=== PATIENT | male | born 1995 | race Caucasian/White ===

== ENCOUNTER 2018-01-18 00:45 | Emergency (ER) | payer SELFPAY ==
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
--- NOTE | 2018-01-18 01:35 | XR ---
EXAMINATION TYPE: XR tibia fibula LT DATE OF EXAM: 01/18/2018 COMPARISON: NONE HISTORY: Puncture of the tibia and fibula. TECHNIQUE: 4 views FINDINGS: I see no fracture nor dislocation. Joint spaces are normal. Soft tissues appear normal. The re is no sign of a foreign body. IMPRESSION: Normal left tibia and fibula exam.
[2018-01-18 02:40] VITALS: BP 107/63; PULSE 81; RESP 19; TEMP 97.5
== END 2018-01-18 02:51 | disposition home or self-care (01) ==
LOC: EC 00:45
DX: S81.812A Laceration without foreign body, left lower leg, initial encounter (principal); F17.200 Nicotine dependence, unspecified, uncomplicated; W22.8XXA Striking against or struck by other objects, initial encounter; Y92.009 Unspecified place in unspecified non-institutional (private) residence as the place of occurrence of the external cause
CPT/HCPCS: 12002; 99283